=== PATIENT | female | born 1985 | race Caucasian/White ===

== ENCOUNTER 2017-04-10 13:35 | Outpatient (CLI) | payer OTHER, MEDICAID ==
[~2017-04-10] VITALS: Ht 175.3 cm; Wt 88.2 kg
[~2017-04-10 13:35] MED LIST: BIRTH CONTROL; MOTRIN600 MG PO; NORCO 325 MG-51 TAB PO; PRENATAL VITAMI1 TA5 PO
[2017-04-10 13:56] VITALS: BP 120/75; PULSE 82
[2017-04-10 14:55] VITALS: BP 114/75; PULSE 71; TEMP 98
== END 2017-04-10 15:10 | disposition home or self-care (01) ==
LOC: LDRO 13:35 → LDR 13:40 → LDRO 15:10
DX: O62.9 Abnormality of forces of labor, unspecified (principal); Z3A.35 35 weeks gestation of pregnancy
CPT/HCPCS: OP

== ENCOUNTER 2017-04-17 14:13 | Outpatient (CLI) | payer OTHER, MEDICAID ==
[~2017-04-17] VITALS: Ht 172.7 cm; Wt 89.5 kg
[2017-04-17 14:40] VITALS: BP 106/67; PULSE 73; TEMP 98.3
[2017-04-17 15:35] VITALS: BP 107/71; PULSE 68
== END 2017-04-17 15:45 | disposition home or self-care (01) ==
LOC: LDRO 14:13
DX: Z34.83 Encounter for supervision of other normal pregnancy, third trimester (principal); Z3A.36 36 weeks gestation of pregnancy

== ENCOUNTER 2017-04-27 06:00 | Inpatient (IN) | payer OTHER, MEDICAID ==
[2005-03-19 21:49] VITALS: BP 119/70
[2017-04-27] VITALS (36 sets, daily range): BP systolic 73–135; BP diastolic 38–87; PULSE 51–115; TEMP 97.9–98.7
[~2017-04-27] VITALS: Ht 172.7 cm; Wt 89.5 kg
[2017-04-27 07:13] LABS: BASO % 0.2 % (0.0-2.0); EOS # 0.1 (0.0-0.7); EOS % 0.6 % (0-4.0); GRAN # 9.5 (1.4-6.5); HEMATOCRIT 34.2 % (37.0-47.0); HEMOGLOBIN 11.4 g/dl (12.5-16.0); LYMPH # 2.4 (1.2-3.4); LYMPH % 18.9 % (20.0-51.0); MEAN CELL VOLUME 87 fl (80.0-100.0); MEAN CORPUSCULAR HEMOGLOBIN 29 pg (27.0-31.0); MEAN CORPUSCULAR HGB CONC 33 g/dl (33.0-37.0); MEAN PLATELET VOLUME 10.9 fl (7.4-10.4); MONO # 0.7 (0.1-0.6); MONO % 5.8 % (1.7-9.3); PLATELET COUNT 318 K/mm3 (130-400); RED BLOOD COUNT 3.95 M/mm3 (4.10-5.30); REDCELL DISTRIBUTION WIDTH-CV 13.4 % (11.5-14.5); WHITE BLOOD COUNT 12.8 K/mm3 (4.8-10.8)
[2017-04-28 04:01] VITALS: BP 105/68; PULSE 83; TEMP 98
[2017-04-28 07:57] VITALS: BP 110/73; PULSE 88; TEMP 97.6
[2017-04-28] MEDS ORDERED: BREASTPUMP MC (11:34)
[2017-04-28] MEDS ORDERED: IBU800 M1 PO (11:34)
[2017-04-28 12:32] VITALS: BP 112/70; PULSE 75; TEMP 97.4
== END 2017-04-28 15:15 | disposition home or self-care (01) | DRG 775 ==
LOC: LDRO 06:00 → LDR 06:03 → OB 15:00
PROVIDERS: Obstetrics & Gynecology
PROC: 10E0XZZ Delivery of Products of Conception, External Approach (ICD-10-PCS; principal; 2017-04-27)
DX: O36.0130 Maternal care for anti-D [Rh] antibodies, third trimester, not applicable or unspecified (principal); O69.81X0 Labor and delivery complicated by cord around neck, without compression, not applicable or unspecified; Z3A.37 37 weeks gestation of pregnancy; Z37.0 Single live birth
CPT/HCPCS: J2400; J2590; J2791; J2795; J7120

== ENCOUNTER 2018-02-01 11:44 | Emergency (ER) | payer OTHER ==
[2005-03-19 21:49] VITALS: BP 119/70
[~2018-02-01] VITALS: Ht 175.3 cm; Wt 70.0 kg
[~2018-02-01 11:44] MED LIST changes: +BREASTPUMP MC; +IBU800 M1 PO
[2018-02-01 11:51] VITALS: TEMP 97.6
[2018-02-01 12:27] VITALS: BP 112/68; PULSE 79
== END 2018-02-01 12:27 | disposition home or self-care (01) ==
LOC: COL.ER 11:44
DX: S05.02XA Injury of conjunctiva and corneal abrasion without foreign body, left eye, initial encounter (principal); Z79.1 Long term (current) use of non-steroidal anti-inflammatories (NSAID); W50.0XXA Accidental hit or strike by another person, initial encounter

== ENCOUNTER 2018-11-07 08:06 | Emergency (ER) | payer OTHER ==
[2005-03-19 21:49] VITALS: BP 119/70
[~2018-11-07] VITALS: Ht 175.3 cm; Wt 77.3 kg
[2018-11-07 08:11] VITALS: TEMP 97.4
[2018-11-07 09:43] LABS: COLLECTION METHOD CLEAN CATCH
[2018-11-07 09:49] LABS: PH 8 (5-8); SQUAMOUS EPITHELIAL 0-2 /hpf; URINE APPEARANCE Clear; URINE BACTERIA Rare /hpf; URINE BILIRUBIN Negative (NEGATIVE); URINE BLOOD Negative (NEGATIVE); URINE COLOR Straw; URINE GLUCOSE Negative (NEGATIVE); URINE KETONE Negative (NEGATIVE); URINE LEUKOCYTE ESTERASE Negative (NEGATIVE); URINE NITRATE Negative (NEGATIVE); URINE PROTEIN(semi-quant) Negative (NEGATIVE); URINE RBC 0-2 /hpf; URINE UROBILINOGEN Negative (NEGATIVE)
[2018-11-07] MEDS ORDERED: NORCO 325 MG-51 TAB PO (09:55)
[2018-11-07] MEDS ORDERED: FLEXERIL 1010 MG/TAB PO (09:55)
[2018-11-07 10:01] VITALS: BP 118/67; PULSE 81
[2018-11-07] MEDS ORDERED: CONCEPT OB PO (10:24)
[2018-11-07] MEDS ORDERED: ATARAX 25MG25 MG/TAB PO (10:25)
== END 2018-11-07 10:05 | disposition home or self-care (01) ==
LOC: COL.ER 08:06
PROVIDERS: Family Medicine
DX: O26.892 Other specified pregnancy related conditions, second trimester (principal); G89.29 Other chronic pain; M54.5 Low back pain; Z3A.18 18 weeks gestation of pregnancy

== ENCOUNTER 2019-03-26 18:11 | Outpatient (CLI) | payer OTHER ==
[~2019-03-26] VITALS: Ht 172.7 cm; Wt 87.7 kg
[~2019-03-26 18:11] MED LIST changes: +ATARAX 25MG25 MG/TAB PO; +COLACE 100100 MG/CAP PO; +CONCEPT OB PO; +FLEXERIL 1010 MG/TAB PO; +GLYCERIN S1 SUPP.REC RC
--- NOTE | 2019-03-26 18:20 | NUR ---
1819- PT PRESENTS TO LDR COMPLAINING OF PRESSURE AND CRAMPING, AMBULATORY TO ROOM LR3, CHANGED INTO GOWN. 1825- EFM X2 APPLIED. PT DENIES REGULAR CONTRACTIONS, LEAKING FLUID, OR VAGINAL BLEEDING. STATES SHE IS FEELING BABY MOVE. PLAN OF CARE DISCUSSED FOR LABOR CHECK AND QUESTIONS ANSWERED. 1829- SVE BY THIS NURSE /-. 1834- NURSING ADMISSION HISTORY AND ASSESSMENT COMPLETED. ORAL HYDRATION PROVIDED. 1929- NURSE TO BEDSIDE. PT DENIES CHANGE IN CONTRACTIONS. STATES SHE IS JUST UNCOMFORTABLE. SVE BY THIS NURSE IS UNCHANGED. PLAN OF CARE DISCUSSED. 1931- PT OFF MONITORS FOR DISMISSAL. 1934- DR ROMAN CALLED AND UPDATED WITH PT HISTORY, ASSESSMENT, COMPLAINT, EFM, AND UNCHANGING SVE. ORDER FOR DISMISSAL GIVEN. 1944- DISMISSAL INSTRUCTIONS GIVEN AND PT VERBALIZES UNDERSTANDING. PT DISMISSED AMBULATORY ACCOMPANIED BY SPOUSE.
[2019-03-26 18:45] VITALS: BP 126/75; PULSE 78; TEMP 98.7
== END 2019-03-26 19:45 | disposition home or self-care (01) ==
LOC: COL.LAB 18:11 → LDR 18:55 → COL.LAB 19:45 → LDR 19:45
DX: O26.899 Other specified pregnancy related conditions, unspecified trimester (principal)
CPT/HCPCS: OP

== ENCOUNTER 2019-04-04 08:00 | Inpatient (IN) | payer OTHER ==
[2005-03-19 21:49] VITALS: BP 119/70
[2019-04-04] VITALS (25 sets, daily range): BP systolic 104–157; BP diastolic 61–101; PULSE 61–123; TEMP 97.8–98.4
[~2019-04-04] VITALS: Ht 170.2 cm; Wt 87.7 kg
--- NOTE | 2019-04-04 08:10 | NUR ---
PATIENT HERE IN LR 4 FOR INDUCTION. PATIENT CHANGED INTO GOWN. ON EFM. VITALS OBTAINED, IV STARTED, CONSENTS SIGNED, ASSESMENT COMPLETE, PATIENT DENIES CONTRACTIONS, LEAKING OF FLUID OR BLEEDING.
[2019-04-04 09:01] LABS: BASO % 0.2 % (0.0-2.0); EOS # 0.1 (0.0-0.7); EOS % 0.6 % (0-4.0); GRAN # 8.2 (1.4-6.5); GRAN % 75.5 % (42.2-75.2); HEMOGLOBIN 10.1 g/dl (12.5-16.0); LYMPH # 1.9 (1.2-3.4); LYMPH % 17.9 % (20.0-51.0); MEAN CELL VOLUME 84 fl (80.0-100.0); MEAN CORPUSCULAR HEMOGLOBIN 28 pg (27.0-31.0); MEAN CORPUSCULAR HGB CONC 33 g/dl (33.0-37.0); MEAN PLATELET VOLUME 10.5 fl (7.4-10.4); MONO # 0.6 (0.1-0.6); MONO % 5.2 % (1.7-9.3); PLATELET COUNT 305 K/mm3 (130-400); RED BLOOD COUNT 3.67 M/mm3 (4.10-5.30)
[2019-04-04 09:28] LABS: HEMATOCRIT 30.8 % (37.0-47.0)
--- NOTE | 2019-04-04 13:24 | NUR ---
BY DR PINEDA. TO MOTHERS ABDOMEN, CORD CUT BY FATHER OF BABY, TO CARE OF KB PORTILLO. PLACENTA EXPRESSED AT 1338. PITOCIN TO 333 MLS/ HR. FUNDAL MASSAGE PROVIDED. PERINEUM INTACT. ICE PACK TO PERINEUM. RECOVERY STARTED AT 1345
[2019-04-05 01:30] VITALS: BP 119/81; PULSE 84; TEMP 98.4
[2019-04-05 07:55] VITALS: BP 128/72; PULSE 75; TEMP 98.5
[2019-04-05] MEDS ORDERED: IBU600 MG PO (09:14)
== END 2019-04-05 15:15 | disposition home or self-care (01) | DRG 807 ==
LOC: LDR 08:00 → OB 15:15
PROVIDERS: ADMIT Obstetrics & Gynecology
PROC: 10E0XZZ Delivery of Products of Conception, External Approach (ICD-10-PCS; principal; 2019-04-04)
PROC: 10907ZC Drainage of Amniotic Fluid, Therapeutic from Products of Conception, Via Natural or Artificial Opening (ICD-10-PCS; 2019-04-04)
PROC: 3E0234Z Introduction of Serum, Toxoid and Vaccine into Muscle, Percutaneous Approach (ICD-10-PCS; 2019-04-04)
DX: O26.893 Other specified pregnancy related conditions, third trimester (principal); Z37.0 Single live birth; O77.0 Labor and delivery complicated by meconium in amniotic fluid; Z3A.39 39 weeks gestation of pregnancy; Z67.41 Type O blood, Rh negative
CPT/HCPCS: J2590; J2791; J7120

== ENCOUNTER 2019-07-06 17:42 | Emergency (ER) | payer OTHER ==
[2005-03-19 21:49] VITALS: BP 119/70
[~2019-07-06] VITALS: Ht 170.2 cm; Wt 74.5 kg
[~2019-07-06 17:42] MED LIST changes: +IBU600 MG PO
[2019-07-06 17:55] VITALS: BP 130/76; TEMP 97.4
[2019-07-06 21:18] VITALS: PULSE 70
== END 2019-07-06 21:18 | disposition home or self-care (01) ==
LOC: COL.ER 17:42
DX: S92.501A Displaced unspecified fracture of right lesser toe(s), initial encounter for closed fracture (principal); W20.8XXA Other cause of strike by thrown, projected or falling object, initial encounter

== ENCOUNTER 2020-12-02 13:44 | Emergency (ER) | payer BC ==
[2005-03-19 21:49] VITALS: BP 119/70
[~2020-12-02] VITALS: Ht 175.3 cm; Wt 75.0 kg
[2020-12-02 14:00] VITALS: TEMP 97.6
[2020-12-02] MEDS ORDERED: CRUTCHES MC (15:13)
[2020-12-02 15:24] VITALS: BP 108/73; PULSE 73
== END 2020-12-02 15:24 | disposition home or self-care (01) ==
LOC: COL.ER 13:44
DX: S93.401A Sprain of unspecified ligament of right ankle, initial encounter (principal); Z87.891 Personal history of nicotine dependence; X50.1XXA Overexertion from prolonged static or awkward postures, initial encounter; Y93.02 Activity, running